=== PATIENT | male | born 1990 | race African-American/Black ===

== ENCOUNTER 2016-09-18 13:00 | Emergency (ER) | payer OTHER ==
[~2016-09-18] VITALS: Ht 185.4 cm; Wt 117.9 kg
[2016-09-18 14:52] LABS: ABSOLUTE NEUTROPHILS 4.1 thou/uL (1.4-8.2); BASOPHILS 0.9 % (0.0-2.0); EOSINOPHILS 0.8 % (0.0-3.0); HEMATOCRIT 43.2 % (42.0-52.0); HEMOGLOBIN 13.9 gm/dL (14.0-18.0); LYMPHOCYTES 33.2 % (24.0-44.0); MCH 23.4 pg (26.0-34.0); MCHC 32.1 g/dL (28.0-37.0); MCV 72.7 fL (80.0-100.0); MONOCYTES 7.6 % (1.0-8.0); PLATELET COUNT 139 thou/uL (150-400); POLYS 57.5 % (36.0-66.0); RBC 5.95 mil/uL (4.50-6.00); RDW 14.9 % (10.5-14.5); WBC 7.1 thou/uL (4.0-11.0)
[2016-09-18 14:56] LABS: MANUAL DIFF NO
[2016-09-18 15:02] LABS: CALCIUM 9.1 mg/dL (8.5-10.1); CREATININE 0.9 mg/dL (0.6-1.3); POTASSIUM 4.1 mmol/L (3.5-5.1)
[2016-09-18 15:23] VITALS: BP 102/61
== END 2016-09-18 15:25 | disposition home or self-care (01) ==
LOC: ER 13:00
PROVIDERS: Emergency Medicine
DX: S09.90XA Unspecified injury of head, initial encounter (principal); M54.2 Cervicalgia; F10.120 Alcohol abuse with intoxication, uncomplicated; F17.210 Nicotine dependence, cigarettes, uncomplicated; F12.10 Cannabis abuse, uncomplicated; V89.2XXA Person injured in unspecified motor-vehicle accident, traffic, initial encounter; Y93.89 Activity, other specified; Y92.89 Other specified places as the place of occurrence of the external cause; Y99.8 Other external cause status